=== PATIENT | male | born 1935 | race Caucasian/White ===

== ENCOUNTER 2018-11-20 08:29 | Observation (INO) | payer MEDICARE, BC ==
[2018-11-20] VITALS (11 sets, daily range): BP systolic 110–155; BP diastolic 60–87; PULSE 52–88; TEMP 97.9–99.4
[~2018-11-20] VITALS: Ht 188 cm; Wt 96.8 kg
[2018-11-20] MEDS ORDERED: SINEMET 25/101 UDTAB PO (09:56)
[2018-11-20] MEDS ORDERED: PRILOSEC 20MG20 MG PO (09:57)
[2018-11-20] MEDS ORDERED: SINEMET CR 50 M1 TER PO (09:58)
[2018-11-20] MEDS ORDERED: FLOMAX 0.40.4 MG/CAP PO (09:58)
[2018-11-20] MEDS ORDERED: SYMMETREL100 MG PO (09:59)
[2018-11-20] MEDS ORDERED: SINGULAIR 110 MG/TAB PO (10:00)
[2018-11-20] MEDS ORDERED: REMERON 15M15 MG/TA1 PO (10:01)
[2018-11-20] MEDS ORDERED: CRESTOR 10MG10 MG PO (10:02)
[2018-11-20] MEDS ORDERED: LEXAPRO 10MG10 MG PO (10:02)
[2018-11-20] MEDS ORDERED: RT ADVAIR 228 DISKUS IH (10:03)
[2018-11-20] MEDS ORDERED: NEUPRO TD (10:03)
[2018-11-20] MEDS ORDERED: TYLENOL 325MG325 MG PO (10:04)
[2018-11-20] MEDS ORDERED: PROAIR HFA0.09 MG/AC IH (10:04)
[2018-11-20] MEDS ORDERED: NYSTATIN POWDER30 GM TOP (10:05)
[2018-11-20] MEDS ORDERED: KLONOPIN 1MG1 MG PO (10:06)
[2018-11-20] MEDS ORDERED: SYMMETREL100 M1 PO (10:07)
[2018-11-20] MEDS ORDERED: COMTAN 200MG T200 MG PO (10:09)
[2018-11-20] MEDS ORDERED: ASPIRIN 81M81 MG/TA2 PO (10:13)
[2018-11-20] MEDS ORDERED: CELEBREX 200MG200 MG PO (10:13)
[2018-11-20] MEDS ORDERED: BIOFREEZE 0.2%-1 GE1 TOP (10:15)
--- NOTE | 2018-11-20 13:00 | NUR ---
PATIENT ARRIVED TO ROOM 321-2 VIA BED FROM THE PACU. PATIENT IS A&O. BRADYCARDIA NOTED, OTHERWISE POST-OP VSS. BOWEL SOUNDS ACTIVE ALL FOUR QUADRANTS. PATIENT TOLERATING SIPS & CHIPS WITHOUT ANY COMPLAINTS OF N/V. POSITIVE PEDAL PULSES EQUAL BILATERALLY. 2+ PITTING-ED[place] TO BLE NOTED. SCD'S TO BLE. IV FLUIDS INFUSING TO LEFT FOREARM IV VIA GRAVITY TUBING. 3-WAY OATES CATHETER TO DEPENDENT DRAINAGE WITH LARGE AMOUNTS OF [place] RED DRAINAGE WITH SMALL CLOTS NOTED IN OATES BAG. CBI INFUSING AT A MODERATE RATE. CALL LIGHT WITHIN REACH. NO OTHER NEEDS AT THIS TIME.
--- NOTE | 2018-11-20 15:25 | NUR ---
Initial visit; Patient thanked Latin Teacher for visit and helping him with his breakfast tray. Latin Teacher will keep Deepak in her prayers and visit him again in the morning.
--- NOTE | 2018-11-20 16:45 | NUR ---
POST-OP VITAL SIGNS COMPLETE. PATIENT SITTING UP IN BED. PATIENT TOLERATING FOOD & LIQUIDS WITHOUT ANY COMPLAINTS OF N/V. PATIENT DENIES PAIN AT THIS TIME.
--- NOTE | 2018-11-20 20:00 | NUR ---
Patient in bed resting. Alert and oriented x3. Shift assessment complete. Chen to dependent drainage with freeman red drainage present. Occasional clots noted. CBI infusing at a moderate rate. Denies pain at this time. Denies further needs at this time.
[2018-11-21 03:14] VITALS: BP 149/65; PULSE 73; TEMP 98.3
--- NOTE | 2018-11-21 06:05 | NUR ---
Patient has rested intermittently through the night. Minimal needs. Chen maintained to dependent drainage with freeman red urine present. Occasional small clots noted. CBI infusing at a fast rate to maintain urine pink. SCDs maintained to BLE. Patient denies pain at this time. Denies further needs at this time. Will report off to day shift.
[2018-11-21 08:12] VITALS: BP 131/67; PULSE 70; TEMP 98.4
[2018-11-21 11:41] VITALS: BP 109/55; PULSE 67; TEMP 98.4
--- NOTE | 2018-11-21 14:02 | NUR ---
SW met with patient to discuss discharge planning. Patient lives in [facility] [place] [address] [place] [facility] [place]. He reports that he has access to the prison and can use their amenities. Patients PCP is Dr Douglas Cortes and he obtains his medications from [email or web address]. Popeye reports his son is going to transport him at the time of discharge. There are no other needs at this time.
[2018-11-21 16:26] VITALS: BP 130/71; PULSE 70; TEMP 98.6
--- NOTE | 2018-11-21 20:00 | NUR ---
Reviewed patient's Sinemet schedule with patient. Pt sitting at side of bed. Has CBI running at moderate rate, pink urine in tubing. Has catheter secured to right thigh with foam tape, beard care given. Pt alert and oriented x4. SL to left forearm. Mild dependent edema note to lower legs. Denies pain at this time.
[2018-11-21 20:21] VITALS: BP 129/60; PULSE 70; TEMP 98.6
[2018-11-22 00:32] VITALS: BP 154/71; PULSE 66; TEMP 97.7
[2018-11-22 03:23] VITALS: BP 112/58; PULSE 72; TEMP 98.2
[2018-11-22 04:56] VITALS: BP 130/78; PULSE 79; TEMP 98.1
--- NOTE | 2018-11-22 05:36 | NUR ---
Has had good urine draining this shift, color has been pink. No need for manual irrigation. Has slept poorly this shift. Denies pain.
[2018-11-22 08:41] VITALS: BP 110/58; PULSE 85; TEMP 97.8
[2018-11-22 12:30] VITALS: BP 132/78; PULSE 88; TEMP 97.8
[2018-11-22 16:10] VITALS: BP 129/84; PULSE 83; TEMP 98.1
--- NOTE | 2018-11-22 18:00 | NUR ---
Patient has been doing well since the catheter was discontinued. No complaints of pain. It took him this long to get to cup 5 but his urine is still dark israel in color with no clots. He has been up and down several times today. No other changes at this time. Call light within reach.
--- NOTE | 2018-11-22 20:26 | NUR ---
Patient up in W/C, assisted to BSC with 2 people, then to bed. Patient tries to help with standing, does fair. Is alert and oriented x3. Has SL to left forearm. 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 Takes HS meds without problem. Denies pain. Uses bed controls well.
--- NOTE | 2018-11-22 22:40 | NUR ---
Complaining of leg cramps and general discomfort. Medicated with Tylenol 650mg and Clonazepam 1mg po now. Voided 200cc of pink tinged urine.
--- NOTE | 2018-11-23 06:18 | NUR ---
Patient incontinent of large amount of urine. Also had voided in his urinal. linen change completed.
[2018-11-23 07:54] VITALS: BP 150/93; PULSE 66; TEMP 98.4
--- NOTE | 2018-11-23 09:33 | NUR ---
JOSE called patients son to discuss discharge today. patient actually lives at [facility] in care home care but would like to go to the [facility] soon. JOSE called [facility] and updated them and faxed information. 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 Nurse informed.
[2018-11-23] MEDS ORDERED: PYRIDIUM 100MG100 MG PO (10:53)
--- NOTE | 2018-11-23 10:59 | NUR ---
SW faxed discharge to [facility].
[2018-11-23 11:21] VITALS: BP 117/68; PULSE 62; TEMP 97.8
[2018-11-23 11:53] VITALS: BP 117/68; PULSE 62; TEMP 97.8
--- NOTE | 2018-11-23 13:00 | NUR ---
Patient is discharging back to [facility]. All belongings packed up and sent with patient. His son is taking him back. INT discontinued. Info packet sent with son.
--- NOTE | 2018-11-23 13:20 | NUR ---
Report called to [facility].
== END 2018-11-23 13:00 ==
LOC: SDCO 08:29 → SURG 13:00 → SDCO 11-22 13:00 → SURG 11-23 02:12
PROVIDERS: ADMIT Urology
DX: N40.1 Benign prostatic hyperplasia with lower urinary tract symptoms (principal); R35.1 Nocturia; J44.9 Chronic obstructive pulmonary disease, unspecified; J45.909 Unspecified asthma, uncomplicated; K21.9 Gastro-esophageal reflux disease without esophagitis; E78.00 Pure hypercholesterolemia, unspecified; Z86.14 Personal history of Methicillin resistant Staphylococcus aureus infection; G20 Parkinson's disease; Z79.82 Long term (current) use of aspirin; Z79.899 Other long term (current) drug therapy; Z96.653 Presence of artificial knee joint, bilateral; F41.9 Anxiety disorder, unspecified; F32.9 Major depressive disorder, single episode, unspecified; M19.90 Unspecified osteoarthritis, unspecified site
CPT/HCPCS: OP; J0690; J1100; J1170; J2270; J2405; J2704; J3010; J7120